=== PATIENT | male | born 1990 | race African-American/Black ===

== ENCOUNTER 2019-11-25 12:23 | Emergency (ER) | payer OTHER ==
[~2019-11-25] VITALS: Ht 175.2 cm; Wt 70.3 kg
== END 2019-11-25 12:44 | disposition home or self-care (01) ==
LOC: ED 12:23
DX: S01.01XD Laceration without foreign body of scalp, subsequent encounter (principal); Z48.02 Encounter for removal of sutures; X58.XXXD Exposure to other specified factors, subsequent encounter